=== PATIENT | male | born 1950 | race African-American/Black ===

== ENCOUNTER 2018-02-13 19:58 | Observation (INO) | payer OTHER ==
[~2018-02-13] VITALS: Ht 177.8 cm; Wt 114.7 kg
[2018-02-13 20:21] LABS: HEMATOCRIT 38.4 % (38.0-50.0); HEMOGLOBIN 12.6 G/DL (12.5-16.6); MCH 27.3 PG (29.0-34.0); MCHC 32.8 G/DL (30.0-36.0); MCV 83.1 FL (86-99); RBC DIS.WIDTH-CV 14.5 % (11.8-14.6); RBC DIS.WIDTH-SD 43.8 % (39-53); RED BLOOD COUNT 4.62 M/uL (4.00-5.50); WHITE BLOOD COUNT 6.8 K/uL (4.1-10.2)
[2018-02-13 20:33] LABS: CHLORIDE 104 mEq/L (99-109); POTASSIUM 3.7 mEq/L (3.7-5.4); SODIUM 141 mEq/L (136-147)
[2018-02-13 20:34] LABS: GLUCOSE 170 mg/dL (70-99)
[2018-02-13 20:38] LABS: CREATININE 0.9 mg/dL (0.6-1.3); GFR ESTIMATE (CALCULATED) > 59 mL/min/ (58.99-99999)
[2018-02-13 20:39] LABS: UREA NITROGEN (BUN) 18 mg/dL (9-23)
[2018-02-13 20:42] LABS: TROP-I INTERPRETATION NEGATIVE; TROPONIN-I 0.02 ng/mL (0.0-0.30)
[2018-02-13 21:03] LABS: PLAT.SUFFICIENCY DECREASED; PLATELET COUNT 113 K/uL (156-360)
[2018-02-13] MEDS ORDERED: PROSCAR5 MG PO (21:34)
[2018-02-13] MEDS ORDERED: DAILY VITE1 EAC1 PO (21:35)
[2018-02-13] MEDS ORDERED: LIPITOR10 MG PO (21:35)
[2018-02-13] MEDS ORDERED: FOLIC ACID0.4 MG PO (21:36)
[2018-02-13] MEDS ORDERED: COLACE100 MG PO (21:36)
[2018-02-13] MEDS ORDERED: ZESTORETIC 10-1 EAC1 PO (21:37)
[2018-02-13] MEDS ORDERED: SENNA8.6 MG PO (21:38)
[2018-02-13] MEDS ORDERED: FLOMAX0.4 MG PO (21:39)
[2018-02-13] MEDS ORDERED: XARELTO20 MG PO (21:39)
[2018-02-13] MEDS ORDERED: TYLENOL325 M2 PO (21:41)
[2018-02-13] MEDS ORDERED: LOPRESSOR50 MG PO (21:41)
[2018-02-13] MEDS ORDERED: FLEET ENEMA-AD118 ML PR (21:42)
[2018-02-13] MEDS ORDERED: LAXATIVE SUPPOS10 MG PR (21:43)
[2018-02-13] MEDS ORDERED: IMITREX25 MG PO (21:44)
[2018-02-14 00:12] LABS: ALBUMIN 3.9 g/dL (3.2-4.8)
[2018-02-14 00:15] LABS: TOTAL PROTEIN 7.3 g/dL (6.4-8.3)
[2018-02-14 00:17] LABS: TOTAL BILIRUBIN 0.6 mg/dL (0.0-1.0)
[2018-02-14 00:18] LABS: ALKALINE PHOSPHATASE 68 IU/L (3-129)
[2018-02-14 00:20] LABS: AST (GOT) 18 IU/L (2-34); DIRECT BILIRUBIN 0.2 mg/dL (0.0-0.3)
[2018-02-14 00:21] LABS: ALT (GPT) 20 IU/L (3-49); LIPASE 41 U/L (1.0-51.0)
[2018-02-14 01:49] VITALS: BP 167/95
[2018-02-14 02:41] LABS: HEMATOCRIT 36.9 % (38.0-50.0); HEMOGLOBIN 12.1 G/DL (12.5-16.6); MCH 27.5 PG (29.0-34.0); MCHC 32.8 G/DL (30.0-36.0); MCV 83.9 FL (86-99); PLATELET COUNT 113 K/uL (156-360); RBC DIS.WIDTH-CV 14.4 % (11.8-14.6); RBC DIS.WIDTH-SD 43.9 % (39-53); WHITE BLOOD COUNT 5.7 K/uL (4.1-10.2)
[2018-02-14 03:18] LABS: TROP-I INTERPRETATION NEGATIVE; TROPONIN-I < 0.01 ng/mL (0.0-0.30)
[2018-02-14 07:44] VITALS: BP 166/88
[2018-02-14 09:12] LABS: TROP-I INTERPRETATION NEGATIVE; TROPONIN-I 0.01 ng/mL (0.0-0.30)
[2018-02-14 12:20] VITALS: BP 140/76
== END 2018-02-14 15:42 ==
LOC: EME → EDBD 19:58 → EME 19:58 → EDOF 23:19 → ENRESERV 23:25 → 4SOUTH 02-14 01:19
PROVIDERS: Hospitalist
DX: R07.9 Chest pain, unspecified (principal); I10 Essential (primary) hypertension; N40.0 Benign prostatic hyperplasia without lower urinary tract symptoms; G43.909 Migraine, unspecified, not intractable, without status migrainosus; E78.2 Mixed hyperlipidemia; E11.51 Type 2 diabetes mellitus with diabetic peripheral angiopathy without gangrene; I48.0 Paroxysmal atrial fibrillation; I25.10 Atherosclerotic heart disease of native coronary artery without angina pectoris; E11.65 Type 2 diabetes mellitus with hyperglycemia; Z79.01 Long term (current) use of anticoagulants; J44.9 Chronic obstructive pulmonary disease, unspecified; F10.11 Alcohol abuse, in remission; D69.6 Thrombocytopenia, unspecified; Z80.3 Family history of malignant neoplasm of breast; Z88.8 Allergy status to other drugs, medicaments and biological substances; Z91.013 Allergy to seafood
CPT/HCPCS: 71046; 80048; 80076; 82948; 83690; 84484; 85027; 93005; 99281; 99285; G0378